=== PATIENT | female | born 1965 | race Caucasian/White ===

== ENCOUNTER 2023-11-24 19:18 | Emergency (ER) | payer OTHER ==
[~2023-11-24 19:18] MED LIST: AMLO5TAB4 PO; FURO20TA90 PO; GLIP5TAB13 PO; IBUP-23 PO; METF-440 PO; METOPROLOL PO; [UNRECOGNIZED DRUG - CODE] PO
== END 2023-11-24 20:40 | disposition left against medical advice (07) ==
LOC: ER 19:25
DX: M25.569 Pain in unspecified knee (principal); Z53.21 Procedure and treatment not carried out due to patient leaving prior to being seen by health care provider